=== PATIENT | male | born 1960 | race Caucasian/White ===

== ENCOUNTER → 2017-08-25 | Day surgery (SDC) | payer OTHER ==
[~2017-08-25] MED LIST: HYDROmorphone 2 MG/ML VIAL IV; LIDOCAINE 1% PF 2 ML VIAL. ID; MORPHINE SULFATE 2 MG/ML DISP.SYRIN. IV; ONDANSETRON PF 4 MG/2 ML VIAL. IV; PROCHLORPERAZINE 10 MG/2 ML VIAL. IV; PROPOFOL 40 ML IV; fentaNYL PF VIAL 100 MCG/2 ML VIAL IV
[2017-08-25] MEDS: IV RINGERS,LACTATED 1000ML 1,000 ML IV (08:13)
== END | disposition home or self-care (01) ==
LOC: ENDOS 07:29
DX: Z86.010 Personal history of colon polyps (principal); Z09 Encounter for follow-up examination after completed treatment for conditions other than malignant neoplasm; E66.9 Obesity, unspecified; Z87.39 Personal history of other diseases of the musculoskeletal system and connective tissue; Z98.890 Other specified postprocedural states; Z72.89 Other problems related to lifestyle; Z80.0 Family history of malignant neoplasm of digestive organs
CPT/HCPCS: 45378; J2704